=== PATIENT | female | born 1930 | race Caucasian/White ===

== ENCOUNTER 2016-03-26 13:10 | Outpatient (RCR) | payer OTHER ==
[~2016-03-26 13:10] MED LIST: ASPIRIN325 MG PO; ATENOLOL25 MG PO; ATROVENT HFA12.9 GM IH; ATROVENT NASAL SPRAY NASAL; BENADRYL25 MG PO; DIAZEPAM5 MG PO; EXCEDRIN; GABAPENTIN300 MG PO; LEVOXYL50 MCG PO; MELOXICAM7.5 MG PO; NEURONTIN100 MG PO; PERCOCET 5-3251 EACH PO; PRILOSEC OTC20 MG PO; SERTRALINE HCL100 MG PO; SYNTHROID50 MCG PO; TENORMIN25 MG PO; TYLENOL PM; VALIUM5 MG PO; WELLBUTRIN SR150 MG PO; WELLBUTRIN100 MG PO
== END 2016-04-21 | disposition home or self-care (01) ==
LOC: PTY 13:10
DX: M19.019 Primary osteoarthritis, unspecified shoulder (principal); R26.81 Unsteadiness on feet; M41.9 Scoliosis, unspecified; M48.05 Spinal stenosis, thoracolumbar region; Z91.81 History of falling; M51.34 Other intervertebral disc degeneration, thoracic region; M79.7 Fibromyalgia; R20.9 Unspecified disturbances of skin sensation; Z87.828 Personal history of other (healed) physical injury and trauma; G62.9 Polyneuropathy, unspecified; K51.90 Ulcerative colitis, unspecified, without complications; Z96.653 Presence of artificial knee joint, bilateral; Z96.641 Presence of right artificial hip joint; Z96.612 Presence of left artificial shoulder joint; Z96.611 Presence of right artificial shoulder joint; H35.30 Unspecified macular degeneration; M40.50 Lordosis, unspecified, site unspecified
CPT/HCPCS: 97110; G0283

== ENCOUNTER 2017-01-13 13:28 | Outpatient (RCR) | payer OTHER | END 2017-01-19 | disposition home or self-care (01) | LOC: PTY 13:28 | DX: R26.81 Unsteadiness on feet (principal) ==

== ENCOUNTER → 2017-02-18 | Outpatient (RCR) | payer OTHER | END | disposition home or self-care (01) | LOC: PTY 02-01 12:30 | DX: R26.81 Unsteadiness on feet (principal) ==

== ENCOUNTER 2017-03-18 13:45 | Outpatient (RCR) | payer OTHER | END 2017-03-21 | disposition home or self-care (01) | LOC: PTY 13:45 | DX: R26.81 Unsteadiness on feet (principal) ==

== ENCOUNTER 2017-04-02 12:30 | Outpatient (RCR) | payer OTHER | END 2017-04-21 | disposition home or self-care (01) | LOC: PTY 12:30 | DX: R26.81 Unsteadiness on feet (principal) ==

== ENCOUNTER 2017-04-29 12:30 | Outpatient (RCR) | payer OTHER | END 2017-05-19 | disposition home or self-care (01) | LOC: PTY 12:30 | DX: R26.81 Unsteadiness on feet (principal) ==

== ENCOUNTER 2017-05-28 13:00 | Outpatient (RCR) | payer OTHER | END 2017-06-19 | disposition home or self-care (01) | LOC: PTY 13:00 | DX: R26.81 Unsteadiness on feet (principal) ==

== ENCOUNTER 2017-06-21 14:30 | Outpatient (RCR) | payer OTHER | END 2017-07-19 | disposition home or self-care (01) | LOC: PTY 14:30 | DX: R26.81 Unsteadiness on feet (principal) ==

== ENCOUNTER 2017-07-22 12:30 | Outpatient (RCR) | payer OTHER | END 2017-08-19 | disposition home or self-care (01) | LOC: PTY 12:30 | DX: R26.81 Unsteadiness on feet (principal) ==